=== PATIENT | female | born 2000 | race Hispanic/Latino ===

== ENCOUNTER 2019-02-08 10:29 | Emergency (ER) | payer OTHER ==
[~2019-02-08] VITALS: Ht 172.7 cm; Wt 56.7 kg
--- OUTSIDE RECORDS SUMMARY | 2019-02-08 10:31 | XMS REPORT ---
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 Phone Giovanni Shama CP Unavailable Allergies, Adverse Reactions, Alerts Substance Reaction Event Type Cefepime HCl hives Drug Allergy Problems Problem Type Condition Code Onset Dates Condition Status Problem Hypotension I95.9 Active Problem Family history of diabetes mellitus Z83.3 Active Problem Subclinical hyperthyroidism E05.90 Active Assessment Dysuria R30.0 Active Medications Medication Code System Code Instructions Start Date End Date Status Dosage Macrobid [facility] [address]-08 100 MG Orally every 12 hrs May 31, 2017 Jun 07, 2017 Active 1 capsule with food Methimazole [facility] 28020490299 5 MG Orally Once a day Active 1 tablet with food Aleve [facility] [address]-72 220 MG Orally prn Active 1 tablet as needed Vital Signs Date/Time: May 31, 2017 BMI 20.30 Index Weight 122 lbs Height 65 in Cardiac Monitoring Heart Rate 91 /min Blood Pressure Diastolic 70 mm Hg Blood Pressure Systolic 100 mm Hg Results Name Result Date Reference Range Unit Abnormality Flag URINE AUTO W/O SCOPE ----Spec [place] 1.015 20170531 ----Turbidity CLOUDY 20170531 ----Glucose NEG 20170531 ----Ketones 5 20170531 ----Blood LARGE +++ 20170531 ----Bili NEG 20170531 ----Color YELLOW 20170531 ----pH 6.0 20170531 ----Leuk Est NEG 20170531 ----Nitrite NEG 20170531 ----Urobilinogen 0.2 20170531 ----Protein NEG 20170531 Summary Purpose [employer] Submission
--- OUTSIDE RECORDS SUMMARY | 2019-02-08 10:31 | XMS REPORT ---
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 Phone Sarah Beth Whalen CP Unavailable Allergies, Adverse Reactions, Alerts Substance Reaction Event Type Cefepime HCl hives Drug Allergy Problems Problem Type Condition Code Onset Dates Condition Status Problem Family history of diabetes mellitus Z83.3 Active Assessment Acute streptococcal pharyngitis J02.0 Active Problem Subclinical hyperthyroidism E05.90 Active Assessment Sore throat J02.9 Active Assessment Cough R05 Active Medications Medication Code System Code Instructions Start Date End Date Status Dosage Amoxicillin [facility] 17924702186 500 mg Orally twice a day Oct 20, 2017 Oct 27, 2017 Active 1 capsule Bromfed DM [facility] 42163387569 30-2-10 MG/5ML Orally every 6 hrs Oct 20, 2017 Oct 27, 2017 Active 10 ml as needed Vital Signs Date/Time: Oct 20, 2017 BMI 20.63 Index Weight 124 lbs Height 65 in Cardiac Monitoring Heart Rate 82 /min Blood Pressure Diastolic 64 mm Hg Blood Pressure Systolic 94 mm Hg Results Name Result Date Reference Range Unit Abnormality Flag RAPID STREP ----Positive positive 20171020 Summary Purpose [employer] Submission
--- OUTSIDE RECORDS SUMMARY | 2019-02-08 10:31 | XMS REPORT | Continuity of Care Document ---
Author Author [facility] Interface Address Unknown Phone Unavailable Problems Problem Status Onset Date Classification Date Reported Comments Source Family history of diabetes mellitus Active Problem 01/21/2019 [facility] Hypotension Active Problem 07/30/2017 [facility] Subclinical hyperthyroidism Active Problem 01/21/2019 [facility] Acute streptococcal pharyngitis Active Diagnosis 10/22/2017 [facility] Sore throat Active Diagnosis 01/21/2019 [facility] Neck pain Active Diagnosis 11/17/2017 [facility] Myalgia Active Diagnosis 11/17/2017 [facility] Cough Active Diagnosis 10/22/2017 [facility] Pharyngitis Active Diagnosis 02/17/2014 [facility] Fatigue Active Diagnosis 09/18/2014 [facility] Right knee pain Active Diagnosis 09/18/2014 [facility] Knee swelling Active Diagnosis 09/18/2014 [facility] Dysuria Active Diagnosis 06/03/2017 [facility] Allergic dermatitis Active Diagnosis 06/03/2013 [facility] Menorrhagia Active Diagnosis 06/03/2013 [facility] URI Active Diagnosis 06/03/2013 [facility] Needs flu shot Active Diagnosis 07/11/2013 [facility] Cellulitis Active Diagnosis 07/11/2013 [facility] Vaginitis Active Diagnosis 11/19/2014 [facility] Encounter for immunization Active Diagnosis 08/04/2016 [facility] Knee contusion Active Diagnosis 09/18/2014 [facility] Urinary tract infection Active Diagnosis 11/22/2015 [facility] Acute pharyngitis Active Diagnosis 11/22/2015 [facility] Other fatigue Active Diagnosis 07/22/2016 [facility] High blood sugar Active Diagnosis 07/22/2016 [facility] Cyst of right ovary Active Diagnosis 07/22/2016 [facility] Acute sinusitis, unspecified Active Diagnosis 02/22/2016 [facility] Acute URI Active Diagnosis 01/21/2019 [facility] Medications Medication Details Route Status Patient Instructions Ordering Provider Order Date Source Bromfed DM 10 ml as needed Orally Active 30-2-10 MG/5ML Orally every 4 hrs Melo 01/10/2019 [facility] Amoxicillin 1 capsule Orally Active 500 mg Orally every 12 hrs Seun 06/08/2018 [facility] Cyclobenzaprine HCl 1 tablet as needed Orally Active 10 mg Orally once a day Marlee 11/15/2017 [facility] Amoxicillin 1 capsule Orally Active 500 mg Orally twice a day Marlee 10/20/2017 [facility] Bromfed DM 10 ml as needed Orally Active 30-2-10 MG/5ML Orally every 6 hrs Marlee 10/20/2017 [facility] Augmentin 1 tablet Orally Active 875-125 MG Orally twice a day Marlee 07/28/2017 [facility] Macrobid 1 capsule with food Orally Active 100 MG Orally every 12 hrs Bison 05/31/2017 [facility] Bromfed DM 10 ml as needed Orally Active 30-2-10 MG/5ML Orally every 6 hrs prn Marlee 10/19/2016 [facility] Amoxicillin 1 capsule Orally Active 500 MG Orally twice a day Marlee 10/19/2016 [facility] Methimazole 1 tablet with food Orally Active 5 MG Orally Once a day Marlee 09/25/2016 [facility] Methimazole 1 tablet with food Orally Active 5 MG Orally Once a day Marlee 07/31/2016 [facility] Zithromax 2 tablets on the first day, then 1 tablet daily for 4 days Orally Active 250 MG Orally Once a day Marlee 02/19/2016 [facility] Ceftin 1 tablet Orally Active 250 MG Orally Twice a day Marlee 11/20/2015 [facility] Diflucan 1 tablet now another 1 tablet in 5 days Orally Active 150 MG Orally Once a day Mulugeta 11/15/2014 [facility] Mobic 1 tablet Orally Active 15 MG Orally Once a day for knee Mulugeta 08/08/2014 [facility] Medrol (Dominick) as directed Orally Active 4 mg Orally as directed Johntysummer 07/18/2014 [facility] Bromfed DM 5- 10 ml as needed Orally Active 30-2-10 MG/5ML Orally every 6 hrs Mulugeta 01/16/2014 [facility] Amoxicillin 1 tablet Orally Active 875 MG Orally Twice a day Mulugeta 01/16/2014 [facility] Augmentin 1 tablet Orally Active 500-125 MG Orally Twice a day Kanta 07/04/2013 [facility] Bromfed DM 10 ml as needed Orally Active 30-2-10 MG/5ML Orally every 6 hrs PRN Tyler 05/30/2013 [facility] Lidex as directed Externally Active 0.05 % Externally twice a day (bid) as needed (prn) Tyler 05/30/2013 [facility] Zithromax Z-Dominick as directed Orally Active 250 MG Orally as directed Tyler 05/30/2013 [facility] Aleve 1 tablet as needed Orally Active 220 MG Orally prn Marlee [facility] Methimazole 1 tablet with food Orally Active 5 MG Orally Once a day Marlee [facility] Ferrous Sulfate 1 tablet Orally Active 28 MG Orally Once a day Lorie [facility] Tylenol 1 tablet as needed Orally No Longer Active 325 MG Orally every 6 hrs Reid [facility] Benadryl 1 capsule as needed Orally Active 25 MG Orally every 6 hrs Mulugeta [facility] Aleve 1 tablet as needed Orally Active 220 MG Orally prn Giovanni [facility] Allergies, Adverse Reactions, Alerts Substance Category Reaction Severity Reaction type Status Date Reported Comments Source N.K.D.A. Adverse Reaction Info Not Available Adverse Reaction Active 11/15/2014 [facility] Cefepime HCl Adverse Reaction hives Adverse Reaction Active 01/10/2019 [facility] Immunizations Immunization Date Given Site Status Last Updated Comments Source FLU 3YRS & [place] 37266 07/31/2016 completed [facility] FLU 3YRS & [place] 86694 07/04/2013 completed [facility] Results Order Name Results Value Reference Range Date Interpretation Comments Source Vital Signs Vital Sign Value Date Comments Source Weight 130 01/10/2019 [facility] Height 65 01/10/2019 [facility] Temperature Oral (F) 98.0 F 01/10/2019 [facility] Heart Rate 94 01/10/2019 [facility] Diastolic (mm Hg) 70 01/10/2019 [facility] Systolic (mm Hg) 110 01/10/2019 [facility] Weight 129 06/08/2018 [facility] Height 65 06/08/2018 [facility] Temperature Oral (F) 99.3 F 06/08/2018 [facility] Heart Rate 70 06/08/2018 [facility] Diastolic (mm Hg) 70 06/08/2018 [facility] Systolic (mm Hg) 100 06/08/2018 [facility] Weight 126 11/15/2017 [facility] Height 65 11/15/2017 [facility] Heart Rate 78 11/15/2017 [facility] Diastolic (mm Hg) 68 11/15/2017 [facility] Systolic (mm Hg) 96 11/15/2017 [facility] Weight 124 10/20/2017 [facility] Height 65 10/20/2017 [facility] Heart Rate 82 10/20/2017 [facility] Diastolic (mm Hg) 64 10/20/2017 [facility] Systolic (mm Hg) 94 10/20/2017 [facility] Weight 124 07/28/2017 [facility] Height 65 07/28/2017 [facility] Temperature Oral (F) 98.3 F 07/28/2017 [facility] Heart Rate 71 07/28/2017 [facility] Diastolic (mm Hg) 66 07/28/2017 [facility] Systolic (mm Hg) 98 07/28/2017 [facility] Weight 122 05/31/2017 [facility] Height 65 05/31/2017 [facility] Heart Rate 91 05/31/2017 [facility] Diastolic (mm Hg) 70 05/31/2017 [facility] Systolic (mm Hg) 100 05/31/2017 [facility] Weight 124 10/19/2016 [facility] Height 65 10/19/2016 [facility] Temperature Oral (F) 98.1 F 10/19/2016 [facility] Heart Rate 77 10/19/2016 [facility] Diastolic (mm Hg) 60 10/19/2016 [facility] Systolic (mm Hg) 102 10/19/2016 [facility] Weight 126 07/31/2016 [facility] Height 64 07/31/2016 [facility] Temperature Oral (F) 97.5 F 07/31/2016 [facility] Heart Rate 75 07/31/2016 [facility] Diastolic (mm Hg) 70 07/31/2016 [facility] Systolic (mm Hg) 106 07/31/2016 [facility] Weight 126 07/20/2016 [facility] Height 64 07/20/2016 [facility] Heart Rate 88 07/20/2016 [facility] Diastolic (mm Hg) 70 07/20/2016 [facility] Systolic (mm Hg) 104 07/20/2016 [facility] Diastolic (mm Hg) 80 02/19/2016 [facility] Systolic (mm Hg) 107 02/19/2016 [facility] Weight 127 02/19/2016 [facility] Temperature Oral (F) 98.3 F 02/19/2016 [facility] Heart Rate 76 02/19/2016 [facility] Weight 124 11/20/2015 [facility] Height 64 11/20/2015 [facility] Temperature Oral (F) 97.4 F 11/20/2015 [facility] Heart Rate 89 11/20/2015 [facility] Diastolic (mm Hg) 64 11/20/2015 [facility] Systolic (mm Hg) 104 11/20/2015 [facility] Weight 119 11/15/2014 [facility] Height 64 11/15/2014 [facility] Heart Rate 88 11/15/2014 [facility] Diastolic (mm Hg) 62 11/15/2014 [facility] Systolic (mm Hg) 110 11/15/2014 [facility] Weight 119 08/08/2014 [facility] Height 64 08/08/2014 [facility] Heart Rate 72 08/08/2014 [facility] Diastolic (mm Hg) 62 08/08/2014 [facility] Systolic (mm Hg) 110 08/08/2014 [facility] Diastolic (mm Hg) 68 07/18/2014 [facility] Systolic (mm Hg) 110 07/18/2014 [facility] Weight 119 07/18/2014 [facility] Heart Rate 60 07/18/2014 [facility] Weight 128 01/16/2014 [facility] Height 64 01/16/2014 [facility] Heart Rate 76 01/16/2014 [facility] Diastolic (mm Hg) 76 01/16/2014 [facility] Systolic (mm Hg) 100 01/16/2014 [facility] Weight 127 07/19/2013 [facility] Height 64 07/19/2013 [facility] Temperature Oral (F) 98.2 F 07/19/2013 [facility] Diastolic (mm Hg) 62 07/19/2013 [facility] Systolic (mm Hg) 114 07/19/2013 [facility] Weight 123 07/04/2013 [facility] Height 64 07/04/2013 [facility] Temperature Oral (F) 98.5 F 07/04/2013 [facility] Diastolic (mm Hg) 70 07/04/2013 [facility] Systolic (mm Hg) 118 07/04/2013 [facility] Weight 121 05/30/2013 [facility] Height 64 05/30/2013 [facility] Temperature Oral (F) 98.8 F 05/30/2013 [facility] Heart Rate 76 05/30/2013 [facility] Diastolic (mm Hg) 70 05/30/2013 [facility] Systolic (mm Hg) 108 05/30/2013 [facility] Encounters Location Location Details Encounter Type Encounter Number Reason For Visit Attending Provider ADM Date DC Date Status Source [facility] SORE THROAT [id number] 05/30/2013 05/30/2013 [facility] SORE THROAT [id number] 05/30/2013 05/30/2013 [facility] SORE THROAT [id number] 05/30/2013 05/30/2013 [facility] SORE THROAT [id number] 05/30/2013 05/30/2013 [facility] SORE THROAT [id number] 05/30/2013 05/30/2013 [facility] SORE THROAT [id number] 05/30/2013 05/30/2013 [facility] SORE THROAT [id number] 05/30/2013 05/30/2013 [facility] SORE THROAT [id number] 05/30/2013 05/30/2013 [facility] SORE THROAT [id number] 05/30/2013 05/30/2013 [facility] SORE THROAT [id number] 05/30/2013 05/30/2013 [facility] SORE THROAT [id number] 05/30/2013 05/30/2013 [facility] SORE THROAT [id number] 05/30/2013 05/30/2013 [facility] SORE THROAT [id number] 05/30/2013 05/30/2013 [facility] SORE THROAT [id number] 05/30/2013 05/30/2013 [facility] SORE THROAT [id number] 05/30/2013 05/30/2013 [facility] SORE IN EAR [id number] 07/04/2013 07/04/2013 [facility] SORE IN EAR [id number] 07/04/2013 07/04/2013 [facility] SORE IN EAR [id number] 07/04/2013 07/04/2013 [facility] SORE IN EAR [id number] 07/04/2013 07/04/2013 [facility] SORE IN EAR [id number] 07/04/2013 07/04/2013 [facility] SORE IN EAR [id number] 07/04/2013 07/04/2013 [facility] SORE IN EAR [id number] 07/04/2013 07/04/2013 [facility] SORE IN EAR [id number] 07/04/2013 07/04/2013 [facility] SORE IN EAR [id number] 07/04/2013 07/04/2013 [facility] SORE IN EAR [id number] 07/04/2013 07/04/2013 [facility] SORE IN EAR [id number] 07/04/2013 07/04/2013 [facility] SORE IN EAR [id number] 07/04/2013 07/04/2013 [facility] SORE IN EAR [id number] 07/04/2013 07/04/2013 [facility] SORE IN EAR [id number] 07/04/2013 07/04/2013 [facility] SORE THROAT [id number] 07/19/2013 07/19/2013 [facility] SORE THROAT [id number] 07/19/2013 07/19/2013 [facility] SORE THROAT [id number] 07/19/2013 07/19/2013 [facility] SORE THROAT [id number] 07/19/2013 07/19/2013 [facility] SORE THROAT [id number] 07/19/2013 07/19/2013 [facility] SORE THROAT [id number] 07/19/2013 07/19/2013 [facility] SORE THROAT [id number] 07/19/2013 07/19/2013 [facility] SORE THROAT [id number] 07/19/2013 07/19/2013 [facility] SORE THROAT [id number] 07/19/2013 07/19/2013 [facility] SORE THROAT [id number] 07/19/2013 07/19/2013 [facility] SORE THROAT [id number] 07/19/2013 07/19/2013 [facility] SORE THROAT [id number] 07/19/2013 07/19/2013 [facility] SORE THROAT [id number] 07/19/2013 07/19/2013 [facility] sore throat [id number] 01/16/2014 01/16/2014 [facility] sore throat [id number] 01/16/2014 01/16/2014 [facility] sore throat [id number] 01/16/2014 01/16/2014 [facility] sore throat [id number] 01/16/2014 01/16/2014 [facility] sore throat [id number] 01/16/2014 01/16/2014 [facility] sore throat [id number] 01/16/2014 01/16/2014 [facility] sore throat [id number] 01/16/2014 01/16/2014 [facility] sore throat [id number] 01/16/2014 01/16/2014 [facility] sore throat [id number] 01/16/2014 01/16/2014 [facility] sore throat [id number] 01/16/2014 01/16/2014 [facility] sore throat [id number] 01/16/2014 01/16/2014 [facility] sore throat [id number] 01/16/2014 01/16/2014 [facility] HURT KNEE [id number] 07/18/2014 07/18/2014 [facility] HURT KNEE [id number] 07/18/2014 07/18/2014 [facility] HURT KNEE [id number] 07/18/2014 07/18/2014 [facility] HURT KNEE [id number] 07/18/2014 07/18/2014 [facility] HURT KNEE [id number] 07/18/2014 07/18/2014 [facility] HURT KNEE [id number] 07/18/2014 07/18/2014 [facility] HURT KNEE [id number] 07/18/2014 07/18/2014 [facility] HURT KNEE [id number] 07/18/2014 07/18/2014 [facility] HURT KNEE [id number] 07/18/2014 07/18/2014 [facility] HURT KNEE [id number] 07/18/2014 07/18/2014 [facility] HURT KNEE [id number] 07/18/2014 07/18/2014 [facility] KNEE PAIN [id number] 08/08/2014 08/08/2014 [facility] KNEE PAIN [id number] 08/08/2014 08/08/2014 [facility] KNEE PAIN [id number] 08/08/2014 08/08/2014 [facility] KNEE PAIN [id number] 08/08/2014 08/08/2014 [facility] KNEE PAIN [id number] 08/08/2014 08/08/2014 [facility] KNEE PAIN [id number] 08/08/2014 08/08/2014 [facility] KNEE PAIN [id number] 08/08/2014 08/08/2014 [facility] KNEE PAIN [id number] 08/08/2014 08/08/2014 [facility] KNEE PAIN [id number] 08/08/2014 08/08/2014 [facility] KNEE PAIN [id number] 08/08/2014 08/08/2014 [facility] KNEE PAIN [id number] 08/08/2014 08/08/2014 [facility] POSSIBLE YEAST INFECTION [id number] 11/15/2014 11/15/2014 [facility] POSSIBLE YEAST INFECTION [id number] 11/15/2014 11/15/2014 [facility] POSSIBLE YEAST INFECTION [id number] 11/15/2014 11/15/2014 [facility] POSSIBLE YEAST INFECTION [id number] 11/15/2014 11/15/2014 [facility] POSSIBLE YEAST INFECTION [id number] 11/15/2014 11/15/2014 [facility] POSSIBLE YEAST INFECTION [id number] 11/15/2014 11/15/2014 [facility] POSSIBLE YEAST INFECTION [id number] 11/15/2014 11/15/2014 [facility] POSSIBLE YEAST INFECTION [id number] 11/15/2014 11/15/2014 [facility] POSSIBLE YEAST INFECTION [id number] 11/15/2014 11/15/2014 [facility] CYST IN OVARY [id number] 08/05/2015 08/05/2015 [facility] CYST IN OVARY [id number] 08/05/2015 08/05/2015 [facility] CYST IN OVARY [id number] 08/05/2015 08/05/2015 [facility] CYST IN OVARY [id number] 08/05/2015 08/05/2015 [facility] CYST IN OVARY [id number] 08/05/2015 08/05/2015 [facility] CYST IN OVARY [id number] 08/05/2015 08/05/2015 [facility] CYST IN OVARY [id number] 08/05/2015 08/05/2015 [facility] CYST IN OVARY [id number] 08/05/2015 08/05/2015 [facility] drainage and stomach pains [id number] 11/20/2015 11/20/2015 [facility] drainage and stomach pains [id number] 11/20/2015 11/20/2015 [facility] drainage and stomach pains [id number] 11/20/2015 11/20/2015 [facility] drainage and stomach pains [id number] 11/20/2015 11/20/2015 [facility] drainage and stomach pains [id number] 11/20/2015 11/20/2015 [facility] drainage and stomach pains [id number] 11/20/2015 11/20/2015 [facility] drainage and stomach pains [id number] 11/20/2015 11/20/2015 [facility] drainage and stomach pains [id number] 11/20/2015 11/20/2015 [facility] Sinus problems [id number] 02/19/2016 02/19/2016 [facility] Sinus problems [id number] 02/19/2016 02/19/2016 [facility] Sinus problems [id number] 02/19/2016 02/19/2016 [facility] Sinus problems [id number] 02/19/2016 02/19/2016 [facility] Sinus problems [id number] 02/19/2016 02/19/2016 [facility] Sinus problems [id number] 02/19/2016 02/19/2016 [facility] Sinus problems [id number] 02/19/2016 02/19/2016 [facility] Sugar dropping [id number] 07/20/2016 07/20/2016 [facility] Sugar dropping [id number] 07/20/2016 07/20/2016 [facility] Sugar dropping [id number] 07/20/2016 07/20/2016 [facility] Sugar dropping [id number] 07/20/2016 07/20/2016 [facility] Sugar dropping [id number] 07/20/2016 07/20/2016 [facility] Sugar dropping [id number] 07/20/2016 07/20/2016 [facility] follow up on lab results [id number] 07/31/2016 07/31/2016 [facility] follow up on lab results [id number] 07/31/2016 07/31/2016 [facility] follow up on lab results [id number] 07/31/2016 07/31/2016 [facility] follow up on lab results [id number] 07/31/2016 07/31/2016 [facility] follow up on lab results [id number] 07/31/2016 07/31/2016 [facility] Unknown [id number] 09/25/2016 09/25/2016 [facility] Unknown [id number] 09/25/2016 09/25/2016 [facility] Unknown [id number] 09/25/2016 09/25/2016 [facility] Unknown [id number] 09/25/2016 09/25/2016 [facility] thyroid/sky [id number] 10/14/2016 10/14/2016 [facility] sore throat [id number] 10/19/2016 10/19/2016 [facility] sore throat [id number] 10/19/2016 10/19/2016 [facility] sore throat [id number] 10/19/2016 10/19/2016 [facility] Unknown [id number] 10/22/2016 10/22/2016 [facility] Unknown [id number] 10/22/2016 10/22/2016 [facility] Procedures Procedure Code Date Perfomer Comments Source
--- OUTSIDE RECORDS SUMMARY | 2019-02-08 10:31 | XMS REPORT ---
Author Author Sarah Beth Whalen Organization [employer] Address Unknown Phone Unavailable Care Team Providers Care R D Internship Name Role Phone Sarah Beth Whalen CP Unavailable Allergies, Adverse Reactions, Alerts Substance Reaction Event Type Cefepime HCl hives Drug Allergy Problems Problem Type Condition Code Onset Dates Condition Status Problem Family history of diabetes mellitus Z83.3 Active Problem Hypotension I95.9 Active Problem Subclinical hyperthyroidism E05.90 Active Assessment Acute streptococcal pharyngitis J02.0 Active Medications Medication Code System Code Instructions Start Date End Date Status Dosage Aleve [facility] 61811296740 220 MG Orally prn Active 1 tablet as needed Augmentin [facility] 46878312744 875-125 MG Orally twice a day Jul 28, 2017 Aug 04, 2017 Active 1 tablet Methimazole [facility] 99564522680 5 MG Orally Once a day Active 1 tablet with food Vital Signs Date/Time: Jul 28, 2017 BMI 20.63 Index Weight 124 lbs Height 65 in Temperature 98.3 F Cardiac Monitoring Heart Rate 71 /min Blood Pressure Diastolic 66 mm Hg Blood Pressure Systolic 98 mm Hg Results No Known Results Summary Purpose [employer] Submission
--- OUTSIDE RECORDS SUMMARY | 2019-02-08 10:32 | XMS REPORT ---
Author Author Madonna Scott Organization [employer] Address Unknown Phone Unavailable Care Team Providers Care Cycle Specialist Name Role Phone Madonna Scott Unavailable Encounters Encounter Location Date SORE THROAT [facility] May 30, 2013 Problems Problem Type Condition ICD-9 Code Onset Dates Condition Status Assessment Allergic dermatitis 692.9 Active Assessment Menorrhagia 626.2 Active Assessment URI (upper respiratory infection) 465.9 Active Medications Medication Code System Code Instructions Start Date End Date Status Dosage Bromfed DM [facility] [address]-64 30-2-10 MG/5ML Orally every 6 hrs PRN May 30, 2013 Jun 09, 2013 Active 10 ml as needed Lidex MULTUM 4980 0.05 % Externally twice a day (bid) as needed (prn) May 30, 2013 Jul 29, 2013 Active as directed Benadryl [facility] [address]-30 25 MG Orally every 6 hrs Active 1 capsule as needed Zithromax Z-Dominick [facility] [address]-35 250 MG Orally as directed May 30, 2013 Jun 04, 2013 Active as directed Social History Social History Element Qualifiers Date Reported Where or with whom do you live ? . with parents May 30, 2013 hobbies/sports . karate May 30, 2013 Tobacco Use: . Are you a: never smoker May 30, 2013 Marital Status: single. May 30, 2013 Occupation: . student May 30, 2013 Family history Qualifier Description Comment Date Reported Father alive healthy May 30, 2013 Mother alive healthy May 30, 2013 Siblings sister-benign tumor on knee May 30, 2013 Vital Signs Date/Time: May 30, 2013 Weight 121 lbs Height 64 inches Temperature 98.8 F Cardiac Monitoring Heart Rate 76 Beats per Minute Blood Pressure Diastolic 70 mm Hg Blood Pressure Systolic 108 mm Hg Results Iron and TIBC CBC With Differential/Platelet Summary Purpose [employer] Submission
--- OUTSIDE RECORDS SUMMARY | 2019-02-08 10:32 | XMS REPORT ---
Author Author Shane Mathews Organization [employer] Address Unknown Phone Unavailable Care Team Providers Care Outside Residential Sales Professional Name Role Phone Shane Mathews CP Unavailable Allergies, Adverse Reactions, Alerts Substance Reaction Event Type N.K.D.A. Info Not Available Non Drug Allergy Encounters Encounter Location Date sore throat [facility] January 16, 2014 HURT KNEE [facility] Jul 18, 2014 KNEE PAIN [facility] Aug 08, 2014 SORE THROAT [facility] May 30, 2013 SORE IN EAR [facility] Jul 04, 2013 SORE THROAT [facility] Jul 19, 2013 Problems Problem Type Condition ICD-9 Code Onset Dates Condition Status Assessment Knee contusion 924.11 Active Assessment Knee swelling 719.06 Active Medications Medication Code System Code Instructions Start Date End Date Status Dosage Tylenol MEDISP[facility] [address]-48 325 MG Orally every 6 hrs Inactive 1 tablet as needed Medrol (Dominick) [facility] [address]-44 4 mg Orally as directed Jul 18, 2014 Jul 19, 2014 Active as directed Benadryl [facility] [address]-26 25 MG Orally every 6 hrs Active 1 capsule as needed Social History Social History Element Qualifiers Date Reported Ethnicity . Status , Is yi your primary language? Yes Aug 08, 2014 Education . 9th grade Aug 08, 2014 Where or with whom do you live ? . with parents Aug 08, 2014 hobbies/sports . karate Aug 08, 2014 Tobacco Use: . Are you a: never smoker Aug 08, 2014 Marital Status: single. Aug 08, 2014 Occupation: . student Aug 08, 2014 Family history Qualifier Description Comment Date Reported Father alive healthy Aug 08, 2014 Mother alive healthy Aug 08, 2014 Siblings sister-benign tumor on knee Aug 08, 2014 Vital Signs Date/Time: Jul 18, 2014 Blood Pressure Diastolic 68 mm Hg Blood Pressure Systolic 110 mm Hg Weight 119 lbs Cardiac Monitoring Heart Rate 60 /min Summary Purpose [employer] Submission
--- OUTSIDE RECORDS SUMMARY | 2019-02-08 10:32 | XMS REPORT ---
Author Author Sarah Beth Whalen Organization [employer] Address Unknown Phone Unavailable Care Team Providers Care Cruise Counselor Name Role Phone Sarah Beth Whalen Unavailable Allergies, Adverse Reactions, Alerts Substance Reaction Event Type Cefepime HCl hives Drug Allergy Problems Problem Type Condition Code Onset Dates Condition Status Problem Family history of diabetes mellitus Z83.3 Active Assessment Neck pain M54.2 Active Problem Subclinical hyperthyroidism E05.90 Active Assessment Myalgia M79.1 Active Medications Medication Code System Code Instructions Start Date End Date Status Dosage Cyclobenzaprine HCl NDC 14323559494 10 mg Orally once a day Nov 15, 2017 Nov 25, 2017 Active 1 tablet as needed Ferrous Sulfate NDC 0 28 MG Orally Once a day Active 1 tablet Vital Signs Date/Time: Nov 15, 2017 BMI 20.97 Index Weight 126 lbs Height 65 in Cardiac Monitoring Heart Rate 78 /min Blood Pressure Diastolic 68 mm Hg Blood Pressure Systolic 96 mm Hg Results No Known Results Summary Purpose [employer] Submission
--- OUTSIDE RECORDS SUMMARY | 2019-02-08 10:32 | XMS REPORT ---
Author Author Sarah Beth Whalen [facility] [employer] Address Unknown Phone Unavailable Care Team Providers Care Animal Cop Name Role Phone Sarah Beth Whalen Unavailable Allergies, Adverse Reactions, Alerts Substance Reaction Event Type Cefepime HCl hives Drug Allergy Encounters Encounter Location Date sore throat [facility] January 16, 2014 HURT KNEE [facility] Jul 18, 2014 KNEE PAIN [facility] Aug 08, 2014 POSSIBLE YEAST INFECTION [facility] Nov 15, 2014 SORE THROAT [facility] May 30, 2013 SORE IN EAR [facility] Jul 04, 2013 SORE THROAT [facility] Jul 19, 2013 CYST IN OVARY [facility] Aug 05, 2015 drainage and stomach pains [facility] Nov 20, 2015 Problems Problem Type Condition ICD-9 Code Onset Dates Condition Status Problem Family history of diabetes mellitus Z83.3 Active Assessment Urinary tract infection N39.0 Active Problem Hypotension I95.9 Active Assessment Acute pharyngitis J02.9 Active Assessment Dysuria R30.0 Active Assessment Sore throat J02.9 Active Medications Medication Code System Code Instructions Start Date End Date Status Dosage Ceftin [facility] [address]-30 250 MG Orally Twice a day Nov 20, 2015 Nov 27, 2015 Active 1 tablet Social History Social History Element Qualifiers Date Reported Occupation: . student Nov 20, 2015 Education . 10th grade Nov 20, 2015 Last Colonoscopy: . never Nov 20, 2015 Where or with whom do you live ? . with parents Nov 20, 2015 Flu Vaccine: . 07/11/15 at hospital Nov 20, 2015 hobbies/sports . karate Nov 20, 2015 children . None Nov 20, 2015 Ethnicity . Status , Is mongolian your primary language? Yes Nov 20, 2015 Tobacco Use: . Are you a: never smoker Nov 20, 2015 Use of recreational / street drugs? . Answer: No Nov 20, 2015 Marital Status: single. Nov 20, 2015 Depression Screening: . negative Nov 20, 2015 Last Bone Density: . never Nov 20, 2015 Do you drink alcohol? . Status: No Nov 20, 2015 Family history Qualifier Description Comment Date Reported Maternal Grandmother Comment not available Nov 20, 2015 Paternal Grandmother Comment not available Nov 20, 2015 Siblings sister-benign tumor on knee Nov 20, 2015 Maternal Grandfather Comment not available Nov 20, 2015 Children Comment not available Nov 20, 2015 Father alive healthy Nov 20, 2015 Paternal Grandfather Comment not available Nov 20, 2015 Mother alive healthy Nov 20, 2015 Other: Comment not available Nov 20, 2015 Vital Signs Date/Time: Nov 20, 2015 Weight 124 lbs Height 64 in Temperature 97.4 F Cardiac Monitoring Heart Rate 89 /min Blood Pressure Diastolic 64 mm Hg Blood Pressure Systolic 104 mm Hg Results RAPID STREP Summary Purpose [employer] Submission
--- OUTSIDE RECORDS SUMMARY | 2019-02-08 10:32 | XMS REPORT ---
Author Author Sarah Beth Whalen [facility] eClinicalWorks Address Unknown Phone Unavailable Care Team Providers Care Mobile Designer Name Role Phone Sarah Beth Whalen Unavailable Allergies, Adverse Reactions, Alerts Substance Reaction Event Type Cefepime HCl hives Drug Allergy Encounters Encounter Location Date sore throat [facility] January 16, 2014 HURT KNEE [facility] Jul 18, 2014 KNEE PAIN [facility] Aug 08, 2014 POSSIBLE YEAST INFECTION [facility] Nov 15, 2014 SORE THROAT [facility] May 30, 2013 SORE IN EAR [facility] Jul 04, 2013 SORE THROAT [facility] Jul 19, 2013 Sinus problems [facility] February 19, 2016 CYST IN OVARY [facility] Aug 05, 2015 drainage and stomach pains [facility] Nov 20, 2015 Problems Problem Type Condition ICD-9 Code Onset Dates Condition Status Problem Family history of diabetes mellitus Z83.3 Active Assessment Acute sinusitis, unspecified J01.90 Active Problem Hypotension I95.9 Active Medications Medication Code System Code Instructions Start Date End Date Status Dosage Zithromax MEDISPAN [address]-39 250 MG Orally Once a day February 19, 2016 February 24, 2016 Active 2 tablets on the first day, then 1 tablet daily for 4 days Aleve MEDISPAN [address]-49 220 MG Orally prn Active 1 tablet as needed Social History Social History Element Qualifiers Date Reported Occupation: . student February 19, 2016 Education . 10th grade February 19, 2016 Last Colonoscopy: . never February 19, 2016 Where or with whom do you live ? . with parents February 19, 2016 Flu Vaccine: . 07/11/15 at hospital February 19, 2016 hobbies/sports . karate February 19, 2016 children . None February 19, 2016 Ethnicity . Status , Is lao your primary language? Yes February 19, 2016 Tobacco Use: . Are you a: never smoker February 19, 2016 Use of recreational / street drugs? . Answer: No February 19, 2016 Marital Status: single. February 19, 2016 Depression Screening: . negative February 19, 2016 Last Bone Density: . never February 19, 2016 Do you drink alcohol? . Status: No February 19, 2016 Family history Qualifier Description Comment Date Reported Maternal Grandmother Comment not available February 19, 2016 Paternal Grandmother Comment not available February 19, 2016 Siblings sister-benign tumor on knee February 19, 2016 Maternal Grandfather Comment not available February 19, 2016 Children Comment not available February 19, 2016 Father alive healthy February 19, 2016 Paternal Grandfather Comment not available February 19, 2016 Mother alive healthy February 19, 2016 Other: Comment not available February 19, 2016 Vital Signs Date/Time: February 19, 2016 Blood Pressure Diastolic 80 mm Hg Blood Pressure Systolic 107 mm Hg Weight 127 lbs Temperature 98.3 F Cardiac Monitoring Heart Rate 76 /min Summary Purpose eClinicalWorks Submission
--- OUTSIDE RECORDS SUMMARY | 2019-02-08 10:32 | XMS REPORT ---
Author Author Sarah Beth Whalen [facility] eClinicalWorks Address Unknown Phone Unavailable Care Team Providers Care Inspector Boiler Name Role Phone Sarah Beth Whalen Unavailable Encounters Encounter Location Date sore throat [facility] January 16, 2014 HURT KNEE [facility] Jul 18, 2014 KNEE PAIN [facility] Aug 08, 2014 POSSIBLE YEAST INFECTION [facility] Nov 15, 2014 SORE THROAT [facility] May 30, 2013 SORE IN EAR [facility] Jul 04, 2013 SORE THROAT [facility] Jul 19, 2013 Sinus problems [facility] February 19, 2016 CYST IN OVARY [facility] Aug 05, 2015 drainage and stomach pains [facility] Nov 20, 2015 Unknown [facility] Sep 25, 2016 Sugar dropping [facility] Jul 20, 2016 follow up on lab results [facility] Jul 31, 2016 Problems Problem Type Condition ICD-9 Code Onset Dates Condition Status Problem Hypotension I95.9 Active Problem Family history of diabetes mellitus Z83.3 Active Problem Subclinical hyperthyroidism E05.90 Active Medications Medication Code System Code Instructions Start Date End Date Status Dosage Methimazole [facility] [address]-32 5 MG Orally Once a day Sep 25, 2016 Active 1 tablet with food Social History Social History Element Qualifiers Date Reported Occupation: . student Jul 31, 2016 Education . 11 th grade Jul 31, 2016 Last Colonoscopy: . never Jul 31, 2016 Where or with whom do you live ? . with parents Jul 31, 2016 Flu Vaccine: . 07/31/16 Jul 31, 2016 hobbies/sports . karate Jul 31, 2016 children . None Jul 31, 2016 Ethnicity . Status , Is cayman islander your primary language? Yes Jul 31, 2016 Tobacco Use: . Are you a: never smoker Jul 31, 2016 Use of recreational / street drugs? . Answer: No Jul 31, 2016 Marital Status: single. Jul 31, 2016 Depression Screening: . negative Jul 31, 2016 Last Bone Density: . never Jul 31, 2016 Do you drink alcohol? . Status: No Jul 31, 2016 Summary Purpose eClinicalWorks Submission
--- OUTSIDE RECORDS SUMMARY | 2019-02-08 10:32 | XMS REPORT ---
Author Author Sarah Beth Whalen [facility] eClinicalWorks Address Unknown Phone Unavailable Care Team Providers Care Bone Char Kiln Tender Name Role Phone Sarah Beth Whalen Unavailable Allergies, Adverse Reactions, Alerts Substance Reaction Event Type Cefepime HCl hives Drug Allergy Encounters Encounter Location Date sore throat [facility] January 16, 2014 HURT KNEE [facility] Jul 18, 2014 KNEE PAIN [facility] Aug 08, 2014 POSSIBLE YEAST INFECTION [facility] Nov 15, 2014 SORE THROAT [facility] May 30, 2013 Sugar dropping [facility] Jul 20, 2016 SORE IN EAR [facility] Jul 04, 2013 follow up on lab results [facility] Jul 31, 2016 SORE THROAT [facility] Jul 19, 2013 Sinus problems [facility] February 19, 2016 CYST IN OVARY [facility] Aug 05, 2015 drainage and stomach pains [facility] Nov 20, 2015 Problems Problem Type Condition ICD-9 Code Onset Dates Condition Status Problem Hypotension I95.9 Active Problem Family history of diabetes mellitus Z83.3 Active Problem Subclinical hyperthyroidism E05.90 Active Assessment Subclinical hyperthyroidism E05.90 Active Assessment Encounter for immunization Z23 Active Medications Medication Code System Code Instructions Start Date End Date Status Dosage Aleve MEDISPAN [address]-17 220 MG Orally prn Active 1 tablet as needed Methimazole MEDISPAN [address]-16 5 MG Orally Once a day Jul 31, 2016 Active 1 tablet with food Social [...] 31, 2016 Ethnicity . Status , Is slovak your primary language? Yes Jul 31, 2016 Tobacco Use: . Are you a: never smoker Jul 31, 2016 Use of recreational / street drugs? . Answer: No Jul 31, 2016 Marital Status: single. Jul 31, 2016 Depression Screening: . negative Jul 31, 2016 Last Bone Density: . never Jul 31, 2016 Do you drink alcohol? . Status: No Jul 31, 2016 Vital Signs Date/Time: Jul 31, 2016 Weight 126 lbs Height 64 in Temperature 97.5 F Cardiac Monitoring Heart Rate 75 /min Blood Pressure Diastolic 70 mm Hg Blood Pressure Systolic 106 mm Hg Immunizations Vaccine Administration Date FLU 3YRS & UP 59383 Jul 31, 2016 Summary Purpose eClinicalWorks Submission
--- OUTSIDE RECORDS SUMMARY | 2019-02-08 10:32 | XMS REPORT ---
Author Author Sarah Beth Whalen [facility] eClinicalWorks Address Unknown Phone Unavailable Care Team Providers Care Screening Tech Name Role Phone Sarah Beth Whalen Unavailable Allergies No Known Allergies Problems Problem Type Condition Code Onset Dates Condition Status Problem Family history of diabetes mellitus Z83.3 Active Problem Subclinical hyperthyroidism E05.90 Active Medications No Known Medications Results No Known Results Summary Purpose eClinicalWorks Submission
--- OUTSIDE RECORDS SUMMARY | 2019-02-08 10:32 | XMS REPORT ---
Author Author Sarah Beth Whalen [facility] eClinicalWorks Address Unknown Phone Unavailable Care Team Providers Care Fertilizer Mixer Name Role Phone Sarah Beth Whalen Unavailable Allergies, Adverse Reactions, Alerts Substance Reaction Event Type Cefepime HCl hives Drug Allergy Encounters Encounter Location Date sore throat [facility] January 16, 2014 HURT KNEE [facility] Jul 18, 2014 KNEE PAIN [facility] Aug 08, 2014 POSSIBLE YEAST INFECTION [facility] Nov 15, 2014 SORE THROAT [facility] May 30, 2013 SORE IN EAR [facility] Jul 04, 2013 SORE THROAT [facility] Jul 19, 2013 Sinus problems [facility] February 19, 2016 CYST IN OVARY [facility] Aug 05, 2015 drainage and stomach pains [facility] Nov 20, 2015 Unknown [facility] Sep 25, 2016 sore throat [facility] Oct 19, 2016 Sugar dropping [facility] Jul 20, 2016 follow up on lab results [facility] Jul 31, 2016 Problems Problem Type Condition ICD-9 Code Onset Dates Condition Status Problem Hypotension I95.9 Active Problem Family history of diabetes mellitus Z83.3 Active Problem Subclinical hyperthyroidism E05.90 Active Assessment Acute streptococcal pharyngitis J02.0 Active Assessment Sore throat J02.9 Active Medications Medication Code System Code Instructions Start Date End Date Status Dosage Bromfed [facility] [address]-74 30-2-10 MG/5ML Orally every 6 hrs prn Oct 19, 2016 Oct 29, 2016 Active 10 ml as needed Aleve MEDISPAN [address]-29 220 MG Orally prn Active 1 tablet as needed Methim[facility] 32735303968 5 MG Orally Once a day Active 1 tablet with food Methimazole [facility] [address]-31 5 MG Orally Once a day Sep 25, 2016 Active 1 tablet with food Amoxicillin [facility] [address]-06 500 MG Orally twice a day Oct 19, 2016 Oct 26, 2016 Active 1 capsule Social History Social History Element Qualifiers Date Reported Occupation: . student Oct 19, 2016 Education . 11 th grade Oct 19, 2016 Last Colonoscopy: . never Oct 19, 2016 Where or with whom do you live ? . with parents Oct 19, 2016 Flu Vaccine: . 07/31/16 Oct 19, 2016 hobbies/sports . karate Oct 19, 2016 children . None Oct 19, 2016 Ethnicity . Status , Is malagasy your primary language? Yes Oct 19, 2016 Tobacco Use: . Are you a: never smoker Oct 19, 2016 Use of recreational / street drugs? . Answer: No Oct 19, 2016 Marital Status: single. Oct 19, 2016 Depression Screening: . negative Oct 19, 2016 Last Bone Density: . never Oct 19, 2016 Do you drink alcohol? . Status: No Oct 19, 2016 Family history Qualifier Description Comment Date Reported Maternal Grandmother Comment not available Oct 19, 2016 Paternal Grandmother Comment not available Oct 19, 2016 Siblings sister-benign tumor on knee Oct 19, 2016 Maternal Grandfather Comment not available Oct 19, 2016 Children Comment not available Oct 19, 2016 Father alive healthy Oct 19, 2016 Paternal Grandfather Comment not available Oct 19, 2016 Mother alive healthy Oct 19, 2016 Other: Comment not available Oct 19, 2016 Vital Signs Date/Time: Oct 19, 2016 Weight 124 lbs Height 65 in Temperature 98.1 F Cardiac Monitoring Heart Rate 77 /min Blood Pressure Diastolic 60 mm Hg Blood Pressure Systolic 102 mm Hg Results RAPID STREP Summary Purpose eClinicalWorks Submission
--- OUTSIDE RECORDS SUMMARY | 2019-02-08 10:32 | XMS REPORT ---
Author Author Liss Kohli Organization eClinicalWorks Address Unknown Phone Unavailable Care Team Providers Care Legislative Advocate Name Role Phone Liss Kohli CP Unavailable Allergies, Adverse Reactions, Alerts Substance Reaction Event Type Cefepime HCl hives Drug Allergy Problems Problem Type Condition Code Onset Dates Condition Status Problem Family history of diabetes mellitus Z83.3 Active Assessment Sore throat J02.9 Active Problem Subclinical hyperthyroidism E05.90 Active Medications Medication Code System Code Instructions Start Date End Date Status Dosage Amoxicillin NDC 94190052920 500 mg Orally every 12 hrs Jun 08, 2018 Jun 18, 2018 Active 1 capsule Ferrous Sulfate NDC 0 28 MG Orally Once a day Active 1 tablet Vital Signs Date/Time: Jun 08, 2018 BMI 21.46 Index Weight 129 lbs Height 65 in Temperature 99.3 F Cardiac Monitoring Heart Rate 70 /min Blood Pressure Diastolic 70 mm Hg Blood Pressure Systolic 100 mm Hg Results Name Result Date Reference Range Unit Abnormality Flag RAPID STREP ----Positive POSITIVE [id number] Summary Purpose eClinicalWorks Submission
--- OUTSIDE RECORDS SUMMARY | 2019-02-08 10:32 | XMS REPORT ---
Author Author Donya Mendez Organization eClinicalWorks Address Unknown Phone Unavailable Care Team Providers Care Bottom Stop Attacher Name Role Phone Donya Mendez Unavailable Encounters Encounter Location Date SORE THROAT [facility] May 30, 2013 SORE IN EAR [facility] Jul 04, 2013 SORE THROAT [facility] Jul 19, 2013 Problems Problem Type Condition ICD-9 Code Onset Dates Condition Status Assessment Pharyngitis 462 Active Medications Medication Code System Code Instructions Start Date End Date Status Dosage Tylenol [facility] [address]-80 325 MG Orally every 6 hrs Active 1 tablet as needed Benadryl [facility] [address]-30 25 MG Orally every 6 hrs Active 1 capsule as needed Social History Social History Element Qualifiers Date Reported Education . [employer]- 8th grade Jul 19, 2013 Where or with whom do you live ? . with parents Jul 19, 2013 hobbies/sports . karate Jul 19, 2013 Tobacco Use: . Are you a: never smoker Jul 19, 2013 Marital Status: single. Jul 19, 2013 Occupation: . student Jul 19, 2013 Family history Qualifier Description Comment Date Reported Father alive healthy Jul 19, 2013 Mother alive healthy Jul 19, 2013 Siblings sister-benign tumor on knee Jul 19, 2013 Vital Signs Date/Time: Jul 19, 2013 Weight 127 lbs Height 64 inches Temperature 98.2 F Blood Pressure Diastolic 62 mm Hg Blood Pressure Systolic 114 mm Hg Summary Purpose eClinicalWorks Submission
--- OUTSIDE RECORDS SUMMARY | 2019-02-08 10:32 | XMS REPORT ---
Author Author Peter Dalal Organization eClinicalWorks Address Unknown Phone Unavailable Care Team Providers Care Soldering Machine Tender Name Role Phone Peter Dalal CP Unavailable Allergies, Adverse Reactions, Alerts Substance Reaction Event Type N.K.D.A. Info Not Available Non Drug Allergy Encounters Encounter Location Date sore throat [facility] January 16, 2014 SORE THROAT [facility] May 30, 2013 SORE IN EAR [facility] Jul 04, 2013 SORE THROAT [facility] Jul 19, 2013 Problems Problem Type Condition ICD-9 Code Onset Dates Condition Status Assessment Pharyngitis 462 Active Medications Medication Code System Code Instructions Start Date End Date Status Dosage [facility] [address]-16 25 MG Orally every 6 hrs Active 1 capsule as needed Bromfed DM MEDISPAN [address]-54 30-2-10 MG/5ML Orally every 6 hrs January 16, 2014 Active 5- 10 ml as needed [facility] [address]-69 325 MG Orally every 6 hrs Active 1 tablet as needed Amox[facility] [address]-40 875 MG Orally Twice a day January 16, 2014 January 26, 2014 Active 1 tablet Social History Social History Element Qualifiers Date Reported Education . [employer]- 8th grade January 16, 2014 Where or with whom do you live ? . with parents January 16, 2014 hobbies/sports . karate January 16, 2014 Tobacco Use: . Are you a: never smoker January 16, 2014 Marital Status: single. January 16, 2014 Occupation: . student January 16, 2014 Family history Qualifier Description Comment Date Reported Father alive healthy January 16, 2014 Mother alive healthy January 16, 2014 Siblings sister-benign tumor on knee January 16, 2014 Vital Signs Date/Time: January 16, 2014 Weight 128 lbs Height 64 in Cardiac Monitoring Heart Rate 76 /min Blood Pressure Diastolic 76 mm Hg Blood Pressure Systolic 100 mm Hg Results RAPID STREP Upper Respiratory Culture Summary Purpose eClinicalWorks Submission
--- OUTSIDE RECORDS SUMMARY | 2019-02-08 10:32 | XMS REPORT ---
Author Author Sky Whalen eClinicalWorks Address Unknown Phone Unavailable Care Team Providers Care Licensed Staff Mft Name Role Phone Sky Whalen CP Unavailable Encounters Encounter Location Date sore throat [facility] January 16, 2014 HURT KNEE [facility] Jul 18, 2014 KNEE PAIN [facility] Aug 08, 2014 POSSIBLE YEAST INFECTION [facility] Nov 15, 2014 SORE THROAT [facility] May 30, 2013 SORE IN EAR [facility] Jul 04, 2013 SORE THROAT [facility] Jul 19, 2013 Sinus problems [facility] February 19, 2016 CYST IN OVARY [facility] Aug 05, 2015 drainage and stomach pains [facility] Nov 20, 2015 Unknown [facility] Oct 22, 2016 thyroid/sky [facility] Oct 14, 2016 Unknown [facility] Sep 25, 2016 sore throat [facility] Oct 19, 2016 Sugar dropping [facility] Jul 20, 2016 follow up on lab results [facility] Jul 31, 2016 Problems Problem Type Condition ICD-9 Code Onset Dates Condition Status Problem Hypotension I95.9 Active Problem Family history of diabetes mellitus Z83.3 Active Problem Subclinical hyperthyroidism E05.90 Active Assessment Subclinical hyperthyroidism E05.90 Active Medications Medication Code System Code Instructions Start Date End Date Status Dosage Aleve MEDISPAN [address]-54 220 MG Orally prn Active 1 tablet as needed Methimazole MEDISPAN 10107419236 5 MG Orally Once a day Active 1 tablet with food Methimazole MEDISPAN [address]-91 5 MG Orally Once a day Sep [...] 19, 2016 Ethnicity . Status , Is cayman islander your primary language? Yes Oct 19, 2016 Tobacco Use: . Are you a: never smoker Oct 19, 2016 Use of recreational / street drugs? . Answer: No Oct 19, 2016 Marital Status: single. Oct 19, 2016 Depression Screening: . negative Oct 19, 2016 Last Bone Density: . never Oct 19, 2016 Do you drink alcohol? . Status: No Oct 19, 2016 Results Thyroid US Summary Purpose eClinicalWorks Submission
--- OUTSIDE RECORDS SUMMARY | 2019-02-08 10:32 | XMS REPORT ---
Author Author Peter Dalal Organization eClinicalWorks Address Unknown Phone Unavailable Care Team Providers Care Movie Theater Manager Name Role Phone Peter Dalal CP Unavailable Allergies, Adverse Reactions, Alerts Substance Reaction Event Type N.K.D.A. Info Not Available Non Drug Allergy Encounters Encounter Location Date sore throat [facility] January 16, 2014 HURT KNEE [facility] Jul 18, 2014 KNEE PAIN [facility] Aug 08, 2014 SORE THROAT [facility] May 30, 2013 SORE IN EAR [facility] Jul 04, 2013 SORE THROAT [facility] Jul 19, 2013 Problems Problem Type Condition ICD-9 Code Onset Dates Condition Status Assessment Fatigue 780.79 Active Assessment Right knee pain 719.46 Active Assessment Knee swelling 719.06 Active Medications Medication Code System Code Instructions Start Date End Date Status Dosage Benadryl MEDISPAN [address]-38 25 MG Orally every 6 hrs Active 1 capsule as needed Mobic MEDISPAN [address]-74 15 MG Orally Once a day for knee Aug 08, 2014 Sep 07, 2014 Active 1 tablet Social History Social History Element Qualifiers Date Reported Ethnicity . Status , Is australian your primary language? Yes Aug 08, 2014 [...] knee Aug 08, 2014 Vital Signs Date/Time: Aug 08, 2014 Weight 119 lbs Height 64 in Cardiac Monitoring Heart Rate 72 /min Blood Pressure Diastolic 62 mm Hg Blood Pressure Systolic 110 mm Hg Summary Purpose eClinicalWorks Submission
--- OUTSIDE RECORDS SUMMARY | 2019-02-08 10:32 | XMS REPORT ---
Author Author Donya Mendez Organization e[employer] Address Unknown Phone Unavailable Care Team Providers Care Manager Of Training And Development Name Role Phone Donya Mendez Unavailable Encounters Encounter Location Date SORE THROAT [facility] May 30, 2013 SORE IN EAR [facility] Jul 04, 2013 Problems Problem Type Condition ICD-9 Code Onset Dates Condition Status Assessment Needs flu shot V04.81 Active Assessment Cellulitis 682.9 Active Medications Medication Code System Code Instructions Start Date End Date Status Dosage Benadryl [facility] [address]-03 25 MG Orally every 6 hrs Active 1 capsule as needed Augmentin [facility] [address]-11 500-125 MG Orally Twice a day Jul 04, 2013 Jul 14, 2013 Active 1 tablet Social History Social History Element Qualifiers Date Reported Education . [employer]- 8th grade Jul 04, 2013 Where or with whom do you live ? . with parents Jul 04, 2013 hobbies/sports . karate Jul 04, 2013 Tobacco Use: . Are you a: never smoker Jul 04, 2013 Marital Status: single. Jul 04, 2013 Occupation: . student Jul 04, 2013 Family history Qualifier Description Comment Date Reported Father alive healthy Jul 04, 2013 Mother alive healthy Jul 04, 2013 Siblings sister-benign tumor on knee Jul 04, 2013 Vital Signs Date/Time: Jul 04, 2013 Weight 123 lbs Height 64 inches Temperature 98.5 F Blood Pressure Diastolic 70 mm Hg Blood Pressure Systolic 118 mm Hg Immunizations Vaccine Administration Date FLU 3YRS & UP [address]16 Jul 04, 2013 Summary Purpose eClinicalWorks Submission
--- OUTSIDE RECORDS SUMMARY | 2019-02-08 10:32 | XMS REPORT ---
Author Author Peter Dalal Organization [employer] Address Unknown Phone Unavailable Care Team Providers Care Maintainer Central Office Name Role Phone Peter Dalal CP Unavailable Allergies, Adverse Reactions, Alerts Substance Reaction Event Type N.K.D.A. Info Not Available Non Drug Allergy Encounters Encounter Location Date sore throat [facility] January 16, 2014 HURT KNEE [facility] Jul 18, 2014 KNEE PAIN [facility] Aug 08, 2014 POSSIBLE YEAST INFECTION [facility] Nov 15, 2014 SORE THROAT [facility] May 30, 2013 SORE IN EAR [facility] Jul 04, 2013 SORE THROAT [facility] Jul 19, 2013 Problems Problem Type Condition ICD-9 Code Onset Dates Condition Status Assessment Vaginitis 616.10 Active Medications Medication Code System Code Instructions Start Date End Date Status Dosage Diflucan MEDISPAN [address]-92 150 MG Orally Once a day Nov 15, 2014 Nov 25, 2014 Active 1 tablet now another 1 tablet in 5 days Benadryl MEDISPAN [address]-89 25 MG Orally every 6 hrs Active 1 capsule as needed Social History Social History Element Qualifiers Date Reported Ethnicity . Status , Is maori your primary language? Yes Nov 15, 2014 Education . 9th grade Nov 15, 2014 Where or with whom do you live ? . with parents Nov 15, 2014 hobbies/sports . karate Nov 15, 2014 Tobacco Use: . Are you a: never smoker Nov 15, 2014 Marital Status: single. Nov 15, 2014 Occupation: . student Nov 15, 2014 Family history Qualifier Description Comment Date Reported Father alive healthy Nov 15, 2014 Mother alive healthy Nov 15, 2014 Siblings sister-benign tumor on knee Nov 15, 2014 Vital Signs Date/Time: Nov 15, 2014 Weight 119 lbs Height 64 in Cardiac Monitoring Heart Rate 88 /min Blood Pressure Diastolic 62 mm Hg Blood Pressure Systolic 110 mm Hg Summary Purpose eClinicalWorks Submission
--- OUTSIDE RECORDS SUMMARY | 2019-02-08 10:32 | XMS REPORT ---
Author Author Sarah Beth Whalne [facility] e[employer] Address Unknown Phone Unavailable Care Team Providers Care Press Hand Supervisor Name Role Phone Sarah Beth Whalen Unavailable Allergies, Adverse Reactions, Alerts Substance Reaction Event Type Cefepime HCl hives Drug Allergy Encounters Encounter Location Date sore throat [facility] January 16, 2014 HURT KNEE [facility] Jul 18, 2014 KNEE PAIN [facility] Aug 08, 2014 POSSIBLE YEAST INFECTION [facility] Nov 15, 2014 SORE THROAT [facility] May 30, 2013 Sugar dropping [facility] Jul 20, 2016 SORE IN EAR [facility] Jul 04, 2013 SORE THROAT [facility] Jul 19, 2013 Sinus problems [facility] February 19, 2016 CYST IN OVARY [facility] Aug 05, 2015 drainage and stomach pains [facility] Nov 20, 2015 Problems Problem Type Condition ICD-9 Code Onset Dates Condition Status Problem Family history of diabetes mellitus Z83.3 Active Assessment Other fatigue R53.83 Active Problem Hypotension I95.9 Active Assessment High blood sugar R73.9 Active Assessment Cyst of right ovary N83.201 Active Medications Medication Code System Code Instructions Start Date End Date Status Dosage Aleve MEDISPAN [address]-26 220 MG Orally prn Active 1 tablet as needed Social History Social History Element Qualifiers Date Reported Occupation: . student Jul 20, 2016 Education . 11 th grade Jul 20, 2016 Last Colonoscopy: . never Jul 20, 2016 Where or with whom do you live ? . with parents Jul 20, 2016 Flu Vaccine: . 07/11/15 at hospital Jul 20, 2016 hobbies/sports . karate Jul 20, 2016 children . None Jul 20, 2016 Ethnicity . Status , Is cuban your primary language? Yes Jul 20, 2016 Tobacco Use: . Are you a: never smoker Jul 20, 2016 Use of recreational / street drugs? . Answer: No Jul 20, 2016 Marital Status: single. Jul 20, 2016 Depression Screening: . negative Jul 20, 2016 Last Bone Density: . never Jul 20, 2016 Do you drink alcohol? . Status: No Jul 20, 2016 Family history Qualifier Description Comment Date Reported Maternal Grandmother Comment not available Jul 20, 2016 Paternal Grandmother Comment not available Jul 20, 2016 Siblings sister-benign tumor on knee Jul 20, 2016 Maternal Grandfather Comment not available Jul 20, 2016 Children Comment not available Jul 20, 2016 Father alive healthy Jul 20, 2016 Paternal Grandfather Comment not available Jul 20, 2016 Mother alive healthy Jul 20, 2016 Other: Comment not available Jul 20, 2016 Vital Signs Date/Time: Jul 20, 2016 Weight 126 lbs Height 64 in Cardiac Monitoring Heart Rate 88 /min Blood Pressure Diastolic 70 mm Hg Blood Pressure Systolic 104 mm Hg Summary Purpose eClinicalWorks Submission
--- OUTSIDE RECORDS SUMMARY | 2019-02-08 10:32 | XMS REPORT ---
Author Author Sarah Beth Whalen [facility] eClinicalWorks Address Unknown Phone Unavailable Care Team Providers Care Synoptic Meteorologist Name Role Phone Sarah Beth Whalen CP Unavailable Encounters Encounter Location Date sore throat [facility] January 16, 2014 HURT KNEE [facility] Jul 18, 2014 KNEE PAIN [facility] Aug 08, 2014 POSSIBLE YEAST INFECTION [facility] Nov 15, 2014 SORE THROAT [facility] May 30, 2013 SORE IN EAR [facility] Jul 04, 2013 SORE THROAT [facility] Jul 19, 2013 Sinus problems [facility] February 19, 2016 CYST IN OVARY [facility] Aug 05, 2015 drainage and stomach pains [facility] Nov 20, 2015 Unknown [facility] Oct 22, 2016 Unknown [facility] Sep 25, 2016 sore throat [facility] Oct 19, 2016 Sugar dropping [facility] Jul 20, 2016 follow up on lab results [facility] Jul 31, 2016 Problems Problem Type Condition ICD-9 Code Onset Dates Condition Status Problem Hypotension I95.9 Active Problem Family history of diabetes mellitus Z83.3 Active Problem Subclinical hyperthyroidism E05.90 Active Social History Social History Element Qualifiers Date [...] 19, 2016 Ethnicity . Status , Is kazakh your primary language? Yes Oct 19, 2016 Tobacco Use: . Are you a: never smoker Oct 19, 2016 Use of recreational / street drugs? . Answer: No Oct 19, 2016 Marital Status: single. Oct 19, 2016 Depression Screening: . negative Oct 19, 2016 Last Bone Density: . never Oct 19, 2016 Do you drink alcohol? . Status: No Oct 19, 2016 Summary Purpose eClinicalWorks Submission
--- OUTSIDE RECORDS SUMMARY | 2019-02-08 10:32 | XMS REPORT ---
Author Author Gricel Melo Organization [employer] Address Unknown Phone Unavailable Care Team Providers Care Lockstitch Sleeve Maker Name Role Phone Gricel Melo CP Unavailable Allergies, Adverse Reactions, Alerts Substance Reaction Event Type Cefepime HCl hives Drug Allergy Problems Problem Type Condition Code Onset Dates Condition Status Problem Family history of diabetes mellitus Z83.3 Active Problem Subclinical hyperthyroidism E05.90 Active Assessment Sore throat J02.9 Active Assessment Acute URI J06.9 Active Medications Medication Code System Code Instructions Start Date End Date Status Dosage Bromfed DM NDC 01107673488 30-2-10 MG/5ML Orally every 4 hrs January 10, 2019 January 13, 2019 Active 10 ml as needed Ferrous Sulfate NDC 0 28 MG Orally Once a day Active 1 tablet Vital Signs Date/Time: January 10, 2019 BMI 21.63 Index Weight 130 lbs Height 65 in Temperature 98.0 F Cardiac Monitoring Heart Rate 94 /min Blood Pressure Diastolic 70 mm Hg Blood Pressure Systolic 110 mm Hg Results Name Result Date Reference Range Unit Abnormality Flag CBC ----Platelets 236 20190114 ----NEUTROPHILS mid-0.5,gra-3.2 20190114 ----MCHC 33.1 20190114 ----MCH 30.5 20190114 ----MCV 92.3 20190114 ----WBC 5.1 20190114 ----RDW 12.7 20190114 ----RBC 4.10 20190114 ----Hemoglobin 12.5 20190114 ----Hematocrit 37.8 20190114 RAPID STREP ----Negative negative 20190114 Summary Purpose eClinicalWorks Submission
[2019-02-08] MEDS ORDERED: SODIUM CHLORIDE 0.9% 1000ML 1,000 ML IV STA (10:38)
[2019-02-08] MEDS ORDERED: ONDANSETRON HCL INJ 2MG/ML 2ML 2 MG/ML VIAL IV STA (10:38)
[2019-02-08 11:07] LABS: BASOPHILS % 0.2 % (0.0-1.0); EOSINOPHILS # (AUTO) 0.1 (0.0-0.4); EOSINOPHILS % 2.2 % (0.0-6.0); HEMATOCRIT 44.2 % (34.2-44.1); LYMPHOCYTES # (AUTO) 0.9 (1.0-3.2); LYMPHOCYTES % 15.6 % (18.0-39.1); MEAN CORPUSCULAR HEMOGLOBIN 29.8 pg (28-32); MEAN CORPUSCULAR HGB CONC 33.9 g/dL (31-35); MEAN CORPUSCULAR VOLUME 87.9 fL (81-99); MONOCYTES # (AUTO) 0.4 (0.2-0.8); MONOCYTES % 6.7 % (4.4-11.3); NEUTROPHILS # (AUTO) 4.5 (2.1-6.9); PLATELET COUNT 65 x10e3/uL (140-360); RED BLOOD COUNT 5.03 x10e6/uL (3.6-5.1); RED CELL DISTRIBUTION WIDTH 12.4 % (11.7-14.4)
[2019-02-08 11:26] LABS: ALANINE AMINOTRANSFERASE 12 IU/L (0-55); ALBUMIN 3.8 g/dL (3.5-5.0); ALBUMIN/GLOBULIN RATIO 0.9 (0.8-2.0); ALKALINE PHOSPHATASE 80 IU/L (40-150); AMYLASE 56 U/L (25-125); ANION GAP 14.9 mmol/L (8-16); BLOOD UREA NITROGEN 6 mg/dL (7-26); BUN/CREATININE RATIO 8 (6-25); CALCIUM 9.3 mg/dL (8.4-10.2); CARBON DIOXIDE 21 mmol/L (22-29); CHLORIDE 103 mmol/L (98-107); CREATININE, SERUM 0.76 mg/dL (0.57-1.11); EST GLOMERULAR FILTRATION RATE > 60 ML/MIN (60-); GLUCOSE 77 mg/dL (74-118); LIPASE 14 U/L (8-78); POTASSIUM 3.9 mmol/L (3.5-5.1); SODIUM 135 mmol/L (136-145)
[2019-02-08 11:47] LABS: THYROID STIMULATING HORMONE 0.836 uIU/mL (0.350-4.940)
--- NOTE | 2019-02-08 11:58 | Diagnostic Imaging Report ---
EXAMINATION: PA and lateral views of the chest. COMPARISON: None CLINICAL HISTORY: Fever of unknown origin DISCUSSION: Lines/tubes: None. Lungs: The lungs are well inflated and clear. There is no evidence of pneumonia or pulmonary edema. Pleura: There is no pleural effusion or pneumothorax. Heart and mediastinum: The cardiomediastinal silhouette is normal. Bones and soft tissues: No acute bony abnormalities. Degenerative changes in the thoracic spine IMPRESSION: No acute cardiopulmonary abnormalities. Signed by: Dr. Marvel Cline M.D. on 02/08/2019 11:54 AM
[2019-02-08] MEDS ORDERED: SEROQUEL25 MG PO (12:21)
[2019-02-08 12:36] LABS: CLARITY,URINE CLEAR (CLEAR); COLOR,URINE YELLOW (YELLOW)
[2019-02-08 12:37] LABS: BILIRUBIN,URINE NEGATIVE (NEGATIVE); KETONES,URINE NEGATIVE (NEGATIVE); LEUKOCYTE ESTERASE ,URINE NEGATIVE (NEGATIVE); NITRITE,URINE NEGATIVE (NEGATIVE); PROTEIN,URINE DIPSTICK NEGATIVE (NEGATIVE); URINE UROBILINOGEN 0.2 mg/dL (0.2 - 1)
[2019-02-08 12:47] LABS: WBC,URINE (MAN) 0-5 /HPF (0-5)
[2019-02-08 12:48] LABS: BACTERIA,URINE FEW /HPF; EPITHELIAL CELLS,URINE MANY /LPF; RENAL EPITHELIAL CELLS,URINE FEW
[2019-02-08 13:00] LABS: BASOPHILS % 0.3 % (0.0-1.0); EOSINOPHILS # (AUTO) 0.2 (0.0-0.4); EOSINOPHILS % 2.1 % (0.0-6.0); HEMATOCRIT 43.4 % (34.2-44.1); HEMOGLOBIN 14.8 g/dL (12.0-16.0); LYMPHOCYTES # (AUTO) 1.4 (1.0-3.2); LYMPHOCYTES % 19.6 % (18.0-39.1); MEAN CORPUSCULAR HGB CONC 34.1 g/dL (31-35); MONOCYTES # (AUTO) 0.5 (0.2-0.8); MONOCYTES % 6.9 % (4.4-11.3); NEUTROPHILS % 70.8 % (38.7-80.0); PLATELET COUNT 193 x10e3/uL (140-360); RED BLOOD COUNT 4.93 x10e6/uL (3.6-5.1); RED CELL DISTRIBUTION WIDTH 12.4 % (11.7-14.4)
--- NOTE | 2019-02-08 14:30 | Diagnostic Imaging Report ---
EXAMINATION: CT of the abdomen and pelvis with contrast. TECHNIQUE: Spiral CT images of the abdomen and pelvis were performed from the lung bases to the lesser trochanters after the intravenous administration of 100 cc Isovue-300. Coronal and sagittal reformatted images were obtained. COMPARISON: Chest radiograph same day CLINICAL HISTORY:Severe generalized abdominal pain, diarrhea DISCUSSION: ABDOMEN/PELVIS: LOWER THORAX:Unremarkable. HEPATOBILIARY: Focal fatty infiltration along the falciform ligament. Otherwise no focal hepatic lesion or intrahepatic biliary ductal dilatation. The gallbladder is normal. SPLEEN: No splenomegaly. PANCREAS: No focal masses or ductal dilatation. ADRENALS: No adrenal nodules. KIDNEYS/URETERS: No hydronephrosis, stones, or solid mass lesions. PELVIC ORGANS/BLADDER: Urinary bladder is unremarkable. Uterus is neutral in position and appears normal. No adnexal mass. PERITONEUM/RETROPERITONEUM: No free air or fluid. LYMPH NODES: Positive intraperitoneal fat limits evaluation for lymphadenopathy. No pelvic sidewall, retroperitoneal, or mesenteric lymphadenopathy. VESSELS: Abdominal aorta, major branch vessels, and iliac arterial systems are well-visualized and patent. Portal vein, splenic vein, and central superior mesenteric vein are patent. GI TRACT: The large bowel shows no evidence of distention or wall thickening. Gas and fecal material are noted throughout. Radiopaque suture material along the cecum related to prior appendectomy. The stomach is collapsed with prominence of the rugal folds. No small bowel dilatation to suggest obstruction. BONES AND SOFT TISSUE: No bony destructive lesions. No soft tissue abnormalities. IMPRESSION: No acute intra-abdominal or pelvic CT abnormality. Status post appendectomy. Signed by: Dr. Marvel Cline M.D. on 02/08/2019 2:27 PM
[2019-02-08] MEDS ORDERED: SODIUM CHLORIDE 0.9% 50ML 50 ML ONE (15:04)
[2019-02-08] MEDS ORDERED: IOPAMIDOL 370 MG/ML 200 ML INFUS..BTL INJ ONE (15:04)
[2019-02-08 15:06] VITALS: BP 109/71
== END 2019-02-08 15:22 | disposition home or self-care (01) ==
LOC: ER 10:29
DX: K52.9 Noninfective gastroenteritis and colitis, unspecified (principal)
CPT/HCPCS: 36415; 71046; 74177; 80053; 81001; 81025; 82150; 83605; 83690; 84443; 85025; 87086; 99284; J2405; J7030; Q9967